=== PATIENT | female | born 1965 | race Caucasian/White ===

== ENCOUNTER → 2023-08-17 07:15 | Outpatient (REF) | payer BC, SELFPAY | LOC: CLAB 07:15 | PROVIDERS: ATTENDING PHYSICIAN Specialist | DX: N62 Hypertrophy of breast (principal) | CPT/HCPCS: 88305 ==

== ENCOUNTER → 2023-09-05 15:11 | Outpatient (REF) | payer BC, SELFPAY | LOC: RAD 15:11 | PROVIDERS: ATTENDING PHYSICIAN Specialist; FAMILY PHYSICIAN Family Medicine | DX: I82.622 Acute embolism and thrombosis of deep veins of left upper extremity (principal) | CPT/HCPCS: 93971 ==